=== PATIENT | male | born 1995 | race Caucasian/White ===

== ENCOUNTER 2023-04-17 04:02 | Emergency (ER) | payer SELFPAY ==
[~2023-04-17] VITALS: Ht 195.6 cm; Wt 97.5 kg
[2023-04-17 04:16] VITALS: BP 118/64; PULSE 88; RESP 18; TEMP 97.4; O2SAT 100
== END 2023-04-17 04:30 | disposition home or self-care (01) ==
LOC: MED 04:02
DX: Z02.89 Encounter for other administrative examinations (principal); V49.88XA Car occupant (driver) (passenger) injured in other specified transport accidents, initial encounter; Y93.89 Activity, other specified; Y92.89 Other specified places as the place of occurrence of the external cause; Y99.8 Other external cause status
CPT/HCPCS: 99283